=== PATIENT | male | born 1965 | race Two or more races ===

== ENCOUNTER 2022-10-29 15:08 | Emergency (ER) | payer OTHER ==
[~2022-10-29] VITALS: Ht 182.9 cm; Wt 83.6 kg
[2022-10-29 15:11] VITALS: BP 145/88
[2022-10-29 15:27] LABS: COVID AG,FIA SOURCE NASOPHARYNGEAL
[2022-10-29] MEDS ORDERED: GuaiFENesin/D-METHORPHAN [SUGAR-FREE] 200-20MG/10 ML SYRUP UDCUP PO ONE (15:30)
[2022-10-29] MEDS ORDERED: ACETAMINOPHEN 500 MG TABLET PO ONE (15:30)
[2022-10-29] MEDS ORDERED: IBUPROFEN 600 MG TABLET PO ONE (15:30)
[2022-10-29 15:33] LABS: INFLUENZA TYPE A NEGATIVE FOR TYPE A (NEGATIVE); INFLUENZA TYPE B NEGATIVE FOR TYPE B (NEGATIVE)
[2022-10-29] MEDS ORDERED: GUAIFDM PO (15:43)
[2022-10-29] MEDS ORDERED: ACET-66 PO (15:43)
[2022-10-29] MEDS ORDERED: IBUP-1554 PO (15:43)
== END 2022-10-29 15:51 | disposition home or self-care (01) ==
LOC: EMS 15:16
DX: R09.89 Other specified symptoms and signs involving the circulatory and respiratory systems (principal); R50.9 Fever, unspecified; R51.9 Headache, unspecified; Z20.822 Contact with and (suspected) exposure to COVID-19
CPT/HCPCS: 87804; 99284; Z7502; Z7610

== ENCOUNTER 2022-11-15 15:14 | Emergency (ER) | payer OTHER ==
[~2022-11-15] VITALS: Ht 182.9 cm; Wt 86.4 kg
[~2022-11-15 15:14] MED LIST: ACET-66 PO; GUAIFDM PO; IBUP-1554 PO
[2022-11-15] MEDS ORDERED: IBUPROFEN 600 MG TABLET PO ONE (17:15)
[2022-11-15 17:56] LABS: APPEARANCE,URINE CLEAR (CLEAR); BILIRUBIN,URINE NEGATIVE (NEGATIVE); GLUCOSE, URINE (UA) NEGATIVE (NEGATIVE); KETONES,URINE TRACE mg/dL (NEGATIVE); LEUKOCYTE ESTERASE ,URINE NEGATIVE (NEGATIVE); NITRATE,URINE NEGATIVE (NEGATIVE); OCCULT BLOOD,URINE NEGATIVE (NEGATIVE); PH,URINE 5.5 (5.0-8.0); PROTEIN,URINE 100-200,SEE CONFIRM mg/dL (NEGATIVE); UROBILINOGEN,URINE <=1.0 mg/dL (<=1.0)
[2022-11-15 18:06] VITALS: BP 120/72
[2022-11-15 18:07] LABS: SULFOSALICYLIC ACID,URINE 2+ (Negative)
[2022-11-15 19:37] LABS: BACTERIA,URINE None Seen /HPF (None Seen); RBC,URINE None Seen /HPF (0-2); SQUAMOUS EPITHELIAL CELL,UR None Seen /LPF (None Seen); WBC,URINE None Seen /HPF (0-5)
[2022-11-15] MEDS ORDERED: IBUP-1492 PO (19:55)
== END 2022-11-15 20:10 | disposition home or self-care (01) ==
LOC: EMS 15:18
DX: N43.3 Hydrocele, unspecified (principal)
CPT/HCPCS: 76870; 81001; 81002; 81003; 87491; 87591; 99284

== ENCOUNTER 2022-12-14 21:58 | Inpatient (IN) | payer OTHER ==
[~2022-12-14] VITALS: Ht 182.9 cm; Wt 86.0 kg
[~2022-12-14 21:58] MED LIST changes: -GUAIFDM PO; +IBUP-1492 PO; -IBUP-1554 PO
[2022-12-14] MEDS ORDERED: VANCOMYCIN 1GM/WATER(PEG/NADA) 200 ML IV ONE (23:15)
[2022-12-14] MEDS ORDERED: SODIUM CHLORIDE 0.9% 1,000 ML IV ONE (23:15)
[2022-12-14] MEDS ORDERED: HYDROCODONE/ACETAMINOPHEN 5-325 MG TABLET PO ONE (23:15)
[2022-12-14 23:34] LABS: BASOPHILS % (AUTO) 0.1 % (0.0-2.0); EOSINOPHILS % (AUTO) 0 % (1.0-6.0); HEMATOCRIT 45.9 % (41-53); HEMOGLOBIN 14.9 g/dL (13.5-17.5); LYMPHOCYTES # (AUTO) 0.7 K/uL (1.0-4.8); LYMPHOCYTES % (AUTO) 4.2 % (22.0-44.0); MEAN CORPUSCULAR HGB CONC 32.6 G/dL (31.0-37.0); MEAN CORPUSCULAR VOLUME 86 fL (80-100); MONOCYTES # (AUTO) 1.2 K/uL (0.1-1.0); MONOCYTES % (AUTO) 7.3 % (2.0-9.0); NEUTROPHILS # (AUTO) 14.5 K/uL (1.8-7.7); PLATELET COUNT (AUTO) 292 K/uL (150-450); RED BLOOD CELL COUNT(AUTO) 5.33 MIL/uL (4.50-5.90); RED CELL DISTRIBUTION WIDTH 14.5 % (11.5-14.5)
[2022-12-14 23:39] LABS: NEUTROPHILS % (AUTO) 88.4 % (40.0-70.0)
[2022-12-14 23:44] LABS: ANION GAP 8 mmol/L (8-16); CALCIUM, TOTAL 9.6 mg/dL (8.8-10.5); CARBON DIOXIDE 27 mmol/L (22-29); CHLORIDE 90 mmol/L (98-107); CREATININE 0.98 mg/dL (0.60-1.30); GLOMERULAR FILTR. RATE CALC > 60 mL/min (>60); GLUCOSE,RANDOM 119 mg/dL (70-110); POTASSIUM 3.5 mmol/L (3.5-5.1); SODIUM SERUM 125 mmol/L (136-145); UREA NITROGEN, BLOOD 22 mg/dL (7-18)
[2022-12-14] MEDS ORDERED: METOCLOPRAMIDE HCL 5 MG/ML 2 ML VIAL IVP ONE (23:45)
[2022-12-14 23:48] LABS: INR 1.1 (0.9-1.1); PROTHROMBIN TIME 11.7 SEC (9.4-11.6)
[2022-12-14 23:50] LABS: ALANINE AMINOTRANSFERASE 34 U/L (12-78); ALBUMIN 3.1 g/dL (3.4-5.0); ALKALINE PHOSPHATASE 92 U/L (46-116); ASPARTATE AMINOTRANSFERASE 45 U/L (15-37); BILIRUBIN,TOTAL 1.3 mg/dL (0.1-1.0); TOTAL PROTEIN, SERUM 8.4 g/dL (6.4-8.2)
[2022-12-14 23:52] LABS: LACTIC ACID 1.4 mmol/L (0.4-2.0)
[2022-12-15 00:07] LABS: CREATINE KINASE, TOTAL ONLY 239 U/L (39-308)
[2022-12-15 00:10] LABS: B-TYPE NATRIURETIC PEPTIDE 160 pg/mL (0-100)
[2022-12-15] MEDS ORDERED: RINGERS SOLUTION,LACTATED 1,000 ML IV SCH (01:45)
[2022-12-15] MEDS ORDERED: ONDANSETRON HCL 4 MG/2 ML VIAL IVP PRN (01:45)
[2022-12-15] MEDS ORDERED: CefTRIAXone 1 GM/DEXTROSE 50 ML IV SCH (02:00)
[2022-12-15 02:12] LABS: COVID AG,FIA SOURCE NASAL SWAB
[2022-12-15 02:40] LABS: APPEARANCE,URINE CLEAR (CLEAR); BILIRUBIN,URINE NEGATIVE (NEGATIVE); GLUCOSE, URINE (UA) NEGATIVE (NEGATIVE); LEUKOCYTE ESTERASE ,URINE NEGATIVE (NEGATIVE); NITRATE,URINE NEGATIVE (NEGATIVE); OCCULT BLOOD,URINE TRACE (NEGATIVE); PROTEIN,URINE TRACE mg/dL (NEGATIVE); SPECIFIC GRAVITIY, URINE 1.009 (1.003-1.030); UROBILINOGEN,URINE <=1.0 mg/dL (<=1.0)
[2022-12-15 02:56] LABS: BACTERIA,URINE None Seen /HPF (None Seen); RBC,URINE 0-2 /HPF (0-2); SQUAMOUS EPITHELIAL CELL,UR Few /LPF (None Seen); WBC,URINE 0-2 /HPF (0-5)
[2022-12-15] MEDS: ACETAMINOPHEN 325 MG TABLET PO PRN ×3 (03:57→20:43)
[2022-12-15 07:11] LABS: ANION GAP 10 mmol/L (8-16); CALCIUM, TOTAL 9.3 mg/dL (8.8-10.5); CARBON DIOXIDE 25 mmol/L (22-29); CHLORIDE 94 mmol/L (98-107); CREATININE 0.69 mg/dL (0.60-1.30); GLOMERULAR FILTR. RATE CALC > 60 mL/min (>60); GLUCOSE,RANDOM 102 mg/dL (70-110); POTASSIUM 3.5 mmol/L (3.5-5.1); SODIUM SERUM 129 mmol/L (136-145); UREA NITROGEN, BLOOD 18 mg/dL (7-18)
[2022-12-15] MEDS ORDERED: KETOROLAC TROMETHAMINE 30 MG/ML VIAL IVP PRN (07:30)
[2022-12-15] MEDS ORDERED: VANCOMYCIN HCL 1.25 GM in DEXTROSE 5%-WATER 250 ML IV SCH (08:00)
[2022-12-15] MEDS: VANCOMYCIN 1GM/WATER(PEG/NADA) 200 ML IV SCH ×2 (08:07→17:18)
[2022-12-15] MEDS: RINGERS SOLUTION,LACTATED 1,000 ML IV SCH ×2 (08:07→21:45)
[2022-12-15] MEDS: CLINDAMYCIN 900 MG/D5% WATER 50 ML IV SCH ×2 (15:21→22:38)
[2022-12-15] MEDS: CEFEPIME HCL 2 GM in DEXTROSE 5%-WATER 50 ML IV SCH (16:21)
[2022-12-15] MEDS: MORPHINE SULFATE 2 MG/ML SYRINGE IVP PRN ×2 (17:04→21:45)
[2022-12-15] MEDS ORDERED: SODIUM CHLORIDE 0.9% 500 ML IV ONE (22:25)
[2022-12-15 22:40] VITALS: BP 137/86
[2022-12-16] MEDS: CEFEPIME HCL 2 GM in DEXTROSE 5%-WATER 50 ML IV SCH ×4 (00:46→23:57)
[2022-12-16] MEDS: VANCOMYCIN 1GM/WATER(PEG/NADA) 200 ML IV SCH ×2 (01:16→11:01)
[2022-12-16] MEDS: ACETAMINOPHEN 325 MG TABLET PO PRN ×2 (03:40→20:41)
[2022-12-16] MEDS: MORPHINE SULFATE 2 MG/ML SYRINGE IVP PRN ×3 (03:40→20:42)
[2022-12-16 03:48] VITALS: BP 112/66
[2022-12-16] MEDS: CLINDAMYCIN 900 MG/D5% WATER 50 ML IV SCH ×3 (06:00→23:33)
[2022-12-16] MEDS ORDERED: INFLUENZA VIRUS VACCINE QVS 2022-23 (6MO+)/PF 60 MCG/0.5 ML SYRINGE IM. ONE (06:30)
[2022-12-16 07:01] VITALS: BP 112/66
[2022-12-16 07:18] LABS: BASOPHILS % (AUTO) 0.2 % (0.0-2.0); EOSINOPHILS % (AUTO) 0.4 % (1.0-6.0); HEMATOCRIT 42.6 % (41-53); LYMPHOCYTES # (AUTO) 1.1 K/uL (1.0-4.8); LYMPHOCYTES % (AUTO) 10.6 % (22.0-44.0); MEAN CORPUSCULAR HEMOGLOBIN 28.5 pg (26.0-34.0); MEAN CORPUSCULAR HGB CONC 32.9 G/dL (31.0-37.0); MEAN CORPUSCULAR VOLUME 86 fL (80-100); MONOCYTES # (AUTO) 1.2 K/uL (0.1-1.0); MONOCYTES % (AUTO) 11.5 % (2.0-9.0); NEUTROPHILS # (AUTO) 8.1 K/uL (1.8-7.7); NEUTROPHILS % (AUTO) 77.3 % (40.0-70.0); PLATELET COUNT (AUTO) 275 K/uL (150-450); RED BLOOD CELL COUNT(AUTO) 4.93 MIL/uL (4.50-5.90); RED CELL DISTRIBUTION WIDTH 14.6 % (11.5-14.5)
[2022-12-16 07:32] LABS: ALANINE AMINOTRANSFERASE 36 U/L (12-78); ALBUMIN 2.3 g/dL (3.4-5.0); ALKALINE PHOSPHATASE 86 U/L (46-116); ANION GAP 11 mmol/L (8-16); ASPARTATE AMINOTRANSFERASE 38 U/L (15-37); BILIRUBIN,TOTAL 0.6 mg/dL (0.1-1.0); CALCIUM, TOTAL 8.9 mg/dL (8.8-10.5); CARBON DIOXIDE 24 mmol/L (22-29); CHLORIDE 94 mmol/L (98-107); CREATININE 0.62 mg/dL (0.60-1.30); GLOMERULAR FILTR. RATE CALC > 60 mL/min (>60); GLUCOSE,RANDOM 105 mg/dL (70-110); POTASSIUM 3.3 mmol/L (3.5-5.1); SODIUM SERUM 129 mmol/L (136-145); TOTAL PROTEIN, SERUM 7.3 g/dL (6.4-8.2); UREA NITROGEN, BLOOD 10 mg/dL (7-18); VANCOMYCIN,RANDOM 10.4 mcg/mL (25.0-50.0)
[2022-12-16 07:45] LABS: C-REACTIVE PROTEIN QUANT 23.85 mg/dL (0.00-0.30)
[2022-12-16] MEDS ORDERED: POTASSIUM CHL 10 MEQ/WATER 50 ML IV PRN (10:00)
[2022-12-16] MEDS ORDERED: POTASSIUM CHLORIDE 20 MEQ ER TABLET PO PRN (10:00)
[2022-12-16] MEDS: RINGERS SOLUTION,LACTATED 1,000 ML IV SCH (10:40)
[2022-12-16 10:44] VITALS: BP 128/87
[2022-12-16] MEDS: VORICONAZOLE 200 MG TABLET PO SCH ×2 (15:56→20:41)
[2022-12-16] MEDS: VANCOMYCIN HCL 1.25 GM in DEXTROSE 5%-WATER 250 ML IV SCH (17:07)
[2022-12-16 17:22] VITALS: BP 119/73
[2022-12-16] MEDS ORDERED: MAGNESIUM SULFATE 2 GM/WATER 50 ML IV ONE (19:00)
[2022-12-16 20:21] VITALS: BP 115/61
[2022-12-17] MEDS: VANCOMYCIN HCL 1.25 GM in DEXTROSE 5%-WATER 250 ML IV SCH ×4 (01:12→23:51)
[2022-12-17 04:34] VITALS: BP 109/63
[2022-12-17] MEDS: CLINDAMYCIN 900 MG/D5% WATER 50 ML IV SCH ×3 (05:42→22:46)
[2022-12-17 07:37] LABS: ANION GAP 7 mmol/L (8-16); C-REACTIVE PROTEIN QUANT 12.78 mg/dL (0.00-0.30); CALCIUM, TOTAL 9.1 mg/dL (8.8-10.5); CARBON DIOXIDE 26 mmol/L (22-29); CHLORIDE 97 mmol/L (98-107); CREATININE 0.61 mg/dL (0.60-1.30); GLOMERULAR FILTR. RATE CALC > 60 mL/min (>60); GLUCOSE,RANDOM 102 mg/dL (70-110); SODIUM SERUM 130 mmol/L (136-145); UREA NITROGEN, BLOOD 12 mg/dL (7-18)
[2022-12-17] MEDS: VORICONAZOLE 200 MG TABLET PO SCH ×2 (08:00→20:10)
[2022-12-17] MEDS: CEFEPIME HCL 2 GM in DEXTROSE 5%-WATER 50 ML IV SCH (08:00)
[2022-12-17 08:50] VITALS: BP 133/87
[2022-12-17] MEDS ORDERED: *CLINICAL-MEROPENEM DOSING CLINICAL ONE (11:30)
[2022-12-17] MEDS: MEROPENEM 1 GM in SODIUM CHLORIDE 0.9% 100 ML IV SCH ×2 (12:36→20:10)
[2022-12-17] MEDS ORDERED: IOHEXOL 350 MG/ML 100 ML VIAL ONE (14:17)
[2022-12-17] MEDS ORDERED: SODIUM CHLORIDE 0.9% 100 ML ONE (14:17)
[2022-12-17] MEDS: MORPHINE SULFATE 2 MG/ML SYRINGE IVP PRN ×2 (14:20→20:11)
[2022-12-17 15:25] VITALS: BP 108/71
[2022-12-17 20:10] VITALS: BP 125/78
[2022-12-17] MEDS ORDERED: MORPHINE SULFATE 2 MG/ML SYRINGE IVP ONE (22:45)
[2022-12-18 04:20] VITALS: BP 123/78
[2022-12-18] MEDS: MORPHINE SULFATE 2 MG/ML SYRINGE IVP PRN ×2 (04:23→20:34)
[2022-12-18] MEDS: MEROPENEM 1 GM in SODIUM CHLORIDE 0.9% 100 ML IV SCH ×3 (04:23→20:22)
[2022-12-18] MEDS: CLINDAMYCIN 900 MG/D5% WATER 50 ML IV SCH ×3 (06:05→23:09)
[2022-12-18] MEDS: VANCOMYCIN HCL 1.25 GM in DEXTROSE 5%-WATER 250 ML IV SCH ×2 (08:18→17:05)
[2022-12-18] MEDS: VORICONAZOLE 200 MG TABLET PO SCH ×2 (08:18→20:23)
[2022-12-18 08:19] LABS: ANION GAP 7 mmol/L (8-16); CALCIUM, TOTAL 9.2 mg/dL (8.8-10.5); CARBON DIOXIDE 26 mmol/L (22-29); CHLORIDE 99 mmol/L (98-107); CREATININE 0.66 mg/dL (0.60-1.30); GLOMERULAR FILTR. RATE CALC > 60 mL/min (>60); GLUCOSE,RANDOM 104 mg/dL (70-110); POTASSIUM 3.8 mmol/L (3.5-5.1); SODIUM SERUM 132 mmol/L (136-145); UREA NITROGEN, BLOOD 10 mg/dL (7-18)
[2022-12-18 08:38] VITALS: BP 128/76
[2022-12-18 15:35] VITALS: BP 135/84
[2022-12-18] MEDS ORDERED: SODIUM CHLORIDE 0.9% 500 ML IV ONE (20:19)
[2022-12-18 20:22] VITALS: BP 128/84
[2022-12-19] MEDS: VANCOMYCIN HCL 1.25 GM in DEXTROSE 5%-WATER 250 ML IV SCH ×3 (00:06→17:14)
[2022-12-19] MEDS: MEROPENEM 1 GM in SODIUM CHLORIDE 0.9% 100 ML IV SCH ×3 (04:27→20:27)
[2022-12-19] MEDS: MORPHINE SULFATE 2 MG/ML SYRINGE IVP PRN ×3 (04:27→22:59)
[2022-12-19 05:15] VITALS: BP 124/79
[2022-12-19] MEDS: CLINDAMYCIN 900 MG/D5% WATER 50 ML IV SCH ×3 (06:38→22:55)
[2022-12-19 07:39] VITALS: BP 128/80
[2022-12-19 08:37] LABS: ANION GAP 7 mmol/L (8-16); C-REACTIVE PROTEIN QUANT 4.53 mg/dL (0.00-0.30); CALCIUM, TOTAL 9.8 mg/dL (8.8-10.5); CARBON DIOXIDE 27 mmol/L (22-29); CHLORIDE 99 mmol/L (98-107); GLOMERULAR FILTR. RATE CALC > 60 mL/min (>60); GLUCOSE,RANDOM 104 mg/dL (70-110); POTASSIUM 4.6 mmol/L (3.5-5.1); SODIUM SERUM 133 mmol/L (136-145); UREA NITROGEN, BLOOD 12 mg/dL (7-18)
[2022-12-19] MEDS: VORICONAZOLE 200 MG TABLET PO SCH ×2 (08:39→20:29)
[2022-12-19 15:03] VITALS: BP 122/76
[2022-12-19 20:10] VITALS: BP 138/87
[2022-12-20] MEDS: VANCOMYCIN HCL 1.25 GM in DEXTROSE 5%-WATER 250 ML IV SCH ×2 (00:12→08:16)
[2022-12-20] MEDS: MEROPENEM 1 GM in SODIUM CHLORIDE 0.9% 100 ML IV SCH ×2 (03:32→12:03)
[2022-12-20 04:45] VITALS: BP 131/78
[2022-12-20] MEDS: CLINDAMYCIN 900 MG/D5% WATER 50 ML IV SCH ×2 (06:16→15:37)
[2022-12-20 08:01] LABS: ANION GAP 9 mmol/L (8-16); CALCIUM, TOTAL 9.9 mg/dL (8.8-10.5); CARBON DIOXIDE 24 mmol/L (22-29); CHLORIDE 99 mmol/L (98-107); GLOMERULAR FILTR. RATE CALC > 60 mL/min (>60); GLUCOSE,RANDOM 117 mg/dL (70-110); POTASSIUM 4.5 mmol/L (3.5-5.1); SODIUM SERUM 132 mmol/L (136-145); UREA NITROGEN, BLOOD 14 mg/dL (7-18)
[2022-12-20] MEDS: VORICONAZOLE 200 MG TABLET PO SCH (08:16)
[2022-12-20 10:32] VITALS: BP 144/87
[2022-12-20] MEDS ORDERED: SULF-261 PO (12:31)
[2022-12-20] MEDS ORDERED: AMOX1TAB16 PO (12:31)
[2022-12-20] MEDS ORDERED: LEVO750T68 PO (12:31)
[2022-12-20 17:12] VITALS: BP 132/83
== END 2022-12-20 18:30 | disposition home or self-care (01) | DRG 720 ==
LOC: EMS 22:05 → AHU 12-15 07:33 → 6S 12-15 18:18
PROVIDERS: ADMIT Internal Medicine; ATTEND Internal Medicine
DX: A41.9 Sepsis, unspecified organism (principal); E87.1 Hypo-osmolality and hyponatremia; F10.10 Alcohol abuse, uncomplicated; L03.811 Cellulitis of head [any part, except face]; Z20.822 Contact with and (suspected) exposure to COVID-19; I10 Essential (primary) hypertension; L03.213 Periorbital cellulitis; N43.3 Hydrocele, unspecified; Z79.899 Other long term (current) drug therapy; R74.8 Abnormal levels of other serum enzymes
CPT/HCPCS: 70450; 70481; 71045; 80048; 80053; 80202; 81001; 82550; 83605; 83735; 83880; 84145; 84484; 85025; 85610; 85730; 86140; 87040; 93005; 99285; G0378; J0692; J0696; J2185; J2270; J2405; J2765; J3370; J3475; J3490; J7030; J7040; J7050; J7060; J7120; Q9967; 36415-L1; 36415-TC

== ENCOUNTER 2022-12-27 17:36 | Emergency (ER) | payer OTHER ==
[~2022-12-27] VITALS: Ht 182.9 cm; Wt 86.4 kg
[~2022-12-27 17:36] MED LIST changes: +AMOX1TAB16 PO; +LEVO750T68 PO; +SULF-261 PO
[2022-12-27 17:37] VITALS: BP 136/62
== END 2022-12-27 19:30 | disposition left against medical advice (07) ==
LOC: EMS 17:36
DX: R42 Dizziness and giddiness (principal); R51.9 Headache, unspecified; Z53.21 Procedure and treatment not carried out due to patient leaving prior to being seen by health care provider
CPT/HCPCS: 99281; Z7502

== ENCOUNTER 2022-12-28 23:42 | Emergency (ER) | payer OTHER ==
[~2022-12-28] VITALS: Ht 182.9 cm; Wt 86.0 kg
[2022-12-28 23:54] VITALS: BP 155/85
[2022-12-30] MEDS ORDERED: BUSP5TAB20 PO (02:12)
[2022-12-30] MEDS ORDERED: QUET25TA PO (02:12)
== END 2022-12-29 01:40 | disposition left against medical advice (07) ==
LOC: EMS 23:43
DX: R51.9 Headache, unspecified (principal); R42 Dizziness and giddiness; Z53.21 Procedure and treatment not carried out due to patient leaving prior to being seen by health care provider
CPT/HCPCS: 93005; 99281; Z7502

== ENCOUNTER 2022-12-29 20:31 | Emergency (ER) | payer OTHER ==
[~2022-12-29] VITALS: Ht 182.9 cm; Wt 84.1 kg
[2022-12-29] MEDS ORDERED: ONDANSETRON HCL 4 MG TABLET PO ONE (22:30)
[2022-12-29] MEDS ORDERED: ACETAMINOPHEN 325 MG TABLET PO ONE (22:30)
[2022-12-29 23:01] LABS: BASOPHILS % (AUTO) 0.4 % (0.0-2.0); EOSINOPHILS % (AUTO) 2.2 % (1.0-6.0); HEMATOCRIT 40.3 % (41-53); HEMOGLOBIN 13.1 g/dL (13.5-17.5); LYMPHOCYTES # (AUTO) 1.5 K/uL (1.0-4.8); LYMPHOCYTES % (AUTO) 29.4 % (22.0-44.0); MEAN CORPUSCULAR HEMOGLOBIN 28.1 pg (26.0-34.0); MEAN CORPUSCULAR HGB CONC 32.5 G/dL (31.0-37.0); MEAN CORPUSCULAR VOLUME 87 fL (80-100); MONOCYTES # (AUTO) 0.4 K/uL (0.1-1.0); MONOCYTES % (AUTO) 8.3 % (2.0-9.0); NEUTROPHILS # (AUTO) 3.1 K/uL (1.8-7.7); NEUTROPHILS % (AUTO) 59.7 % (40.0-70.0); PLATELET COUNT (AUTO) 358 K/uL (150-450); RED BLOOD CELL COUNT(AUTO) 4.66 MIL/uL (4.50-5.90); RED CELL DISTRIBUTION WIDTH 14.8 % (11.5-14.5)
[2022-12-29 23:09] LABS: ANION GAP 9 mmol/L (8-16); CALCIUM, TOTAL 9.3 mg/dL (8.8-10.5); CARBON DIOXIDE 25 mmol/L (22-29); CHLORIDE 104 mmol/L (98-107); CREATININE 0.73 mg/dL (0.60-1.30); GLOMERULAR FILTR. RATE CALC > 60 mL/min (>60); GLUCOSE,RANDOM 109 mg/dL (70-110); POTASSIUM 3.6 mmol/L (3.5-5.1); SODIUM SERUM 138 mmol/L (136-145); UREA NITROGEN, BLOOD 19 mg/dL (7-18)
[2022-12-30 00:57] VITALS: BP 132/89
[2022-12-30] MEDS ORDERED: BUSP5TAB20 PO (02:12)
[2022-12-30] MEDS ORDERED: QUET25TA PO (02:12)
== END 2022-12-30 02:50 | disposition home or self-care (01) ==
LOC: EMS 20:34
DX: R51.9 Headache, unspecified (principal); I10 Essential (primary) hypertension; F10.90 Alcohol use, unspecified, uncomplicated; Z90.89 Acquired absence of other organs; Z98.890 Other specified postprocedural states
CPT/HCPCS: 99283; 80048; 85025; 36415; Q0162

== ENCOUNTER 2023-06-14 20:34 | Emergency (ER) | payer OTHER ==
[~2023-06-14] VITALS: Ht 182.9 cm; Wt 93.0 kg
[~2023-06-14 20:34] MED LIST changes: -AMOX1TAB16 PO; +BUSP5TAB20 PO; +QUET25TA PO; -SULF-261 PO
[2023-06-14 20:45] VITALS: BP 141/98; PULSE 99; RESP 18; TEMP 99.8
[2023-06-14 23:17] LABS: BASOPHILS % (AUTO) 0.6 % (0.0-2.0); EOSINOPHILS % (AUTO) 3.5 % (1.0-6.0); HEMOGLOBIN 15.5 g/dL (13.5-17.5); LYMPHOCYTES # (AUTO) 2.3 K/uL (1.0-4.8); LYMPHOCYTES % (AUTO) 31.3 % (22.0-44.0); MEAN CORPUSCULAR HGB CONC 32.9 G/dL (31.0-37.0); MEAN CORPUSCULAR VOLUME 88 fL (80-100); MONOCYTES # (AUTO) 0.5 K/uL (0.1-1.0); MONOCYTES % (AUTO) 7.4 % (2.0-9.0); NEUTROPHILS # (AUTO) 4.2 K/uL (1.8-7.7); NEUTROPHILS % (AUTO) 57.2 % (40.0-70.0); PLATELET COUNT (AUTO) 347 K/uL (150-450); RED BLOOD CELL COUNT(AUTO) 5.33 MIL/uL (4.50-5.90); RED CELL DISTRIBUTION WIDTH 14.4 % (11.5-14.5)
[2023-06-14 23:26] LABS: ANION GAP 12 mmol/L (8-16); CALCIUM, TOTAL 8.7 mg/dL (8.8-10.5); CARBON DIOXIDE 26 mmol/L (22-29); CHLORIDE 102 mmol/L (98-107); CREATININE 0.64 mg/dL (0.60-1.30); GLOMERULAR FILTR. RATE CALC > 60 mL/min (>60); GLUCOSE,RANDOM 106 mg/dL (70-110); POTASSIUM 3.4 mmol/L (3.5-5.1); SODIUM SERUM 140 mmol/L (136-145)
[2023-06-14 23:32] LABS: ALANINE AMINOTRANSFERASE 74 U/L (12-78); ALBUMIN 3.2 g/dL (3.4-5.0); ALKALINE PHOSPHATASE 109 U/L (46-116); ASPARTATE AMINOTRANSFERASE 78 U/L (15-37); BILIRUBIN,TOTAL 0.6 mg/dL (0.1-1.0); TOTAL PROTEIN, SERUM 7.1 g/dL (6.4-8.2)
== END 2023-06-15 01:14 | disposition left against medical advice (07) ==
LOC: EMS 20:35
DX: F10.129 Alcohol abuse with intoxication, unspecified (principal); I10 Essential (primary) hypertension; Y90.9 Presence of alcohol in blood, level not specified
CPT/HCPCS: 99283; 80053; 85025; 36415; G0480

== ENCOUNTER 2023-11-15 10:28 | Emergency (ER) | payer OTHER ==
[~2023-11-15] VITALS: Ht 182.9 cm; Wt 95.5 kg
[2023-11-15 10:30] VITALS: TEMP 98.5
[2023-11-15] MEDS: SULFAMETHOX/TRIMETH DS 800-160 MG/TABLET PO ONE (13:16)
[2023-11-15] MEDS: CEPHALEXIN MONOHYDRATE 500 MG CAPSULE PO ONE (13:16)
[2023-11-15] MEDS: LIDOCAINE 1% 10 ML VIAL ID ONE (13:17)
[2023-11-15] MEDS ORDERED: IBUP-1506 PO (13:55)
[2023-11-15] MEDS ORDERED: CEPH-558 PO (13:55)
[2023-11-15] MEDS: PERTUSS(ACELL),DIPH,TET VAC/PF 0.5 ML SYRINGE IM. ONE (14:29)
[2023-11-15 14:45] VITALS: BP 147/92; PULSE 78; RESP 18
== END 2023-11-15 16:55 | disposition home or self-care (01) ==
LOC: EMS 10:28
DX: L02.611 Cutaneous abscess of right foot (principal); I10 Essential (primary) hypertension; F10.90 Alcohol use, unspecified, uncomplicated; Z98.890 Other specified postprocedural states; Y90.9 Presence of alcohol in blood, level not specified
CPT/HCPCS: 99283; 10060; 90715; 90471; J3490

== ENCOUNTER 2023-12-10 22:12 | Emergency (ER) | payer OTHER ==
[~2023-12-10] VITALS: Ht 182.9 cm; Wt 90.9 kg
[~2023-12-10 22:12] MED LIST changes: -ACET-66 PO; -BUSP5TAB20 PO; +CEPH-558 PO; -IBUP-1492 PO; +IBUP-1506 PO; -LEVO750T68 PO; -QUET25TA PO
[2023-12-10 22:16] VITALS: BP 161/97; PULSE 108; RESP 18; TEMP 98.3
[2023-12-11] MEDS: KETOROLAC TROMETHAMINE 60 MG/2 ML VIAL IM ONE (00:48)
[2023-12-11] MEDS ORDERED: IBUP-1492 PO (02:19)
== END 2023-12-11 02:55 | disposition home or self-care (01) ==
LOC: EMS 22:14
DX: S62.323A Displaced fracture of shaft of third metacarpal bone, left hand, initial encounter for closed fracture (principal); S09.90XA Unspecified injury of head, initial encounter; F10.90 Alcohol use, unspecified, uncomplicated; I10 Essential (primary) hypertension; Z98.890 Other specified postprocedural states; Y08.89XA Assault by other specified means, initial encounter; Y93.89 Activity, other specified; Y92.89 Other specified places as the place of occurrence of the external cause; Y99.8 Other external cause status
CPT/HCPCS: 99285; 70450; 73130; 96372; J1885

== ENCOUNTER 2024-03-02 14:25 | Emergency (ER) | payer OTHER ==
[~2024-03-02] VITALS: Ht 183.5 cm; Wt 95.5 kg
[~2024-03-02 14:25] MED LIST changes: +IBUP-1492 PO
[2024-03-02 14:29] VITALS: TEMP 97.8
[2024-03-02 15:24] LABS: COVID AG,FIA SOURCE NASAL SWAB
[2024-03-02 15:35] LABS: APPEARANCE,URINE CLEAR (CLEAR); BILIRUBIN,URINE NEGATIVE (NEGATIVE); COLOR,URINE YELLOW (YELLOW); GLUCOSE, URINE (UA) NEGATIVE (NEGATIVE); KETONES,URINE NEGATIVE (NEGATIVE); LEUKOCYTE ESTERASE ,URINE NEGATIVE (NEGATIVE); NITRATE,URINE NEGATIVE (NEGATIVE); OCCULT BLOOD,URINE NEGATIVE (NEGATIVE); PROTEIN,URINE 300-600,SEE CONFIRM mg/dL (NEGATIVE); SPECIFIC GRAVITIY, URINE 1.025 (1.003-1.030); UROBILINOGEN,URINE <=1.0 mg/dL (<=1.0)
[2024-03-02 15:56] LABS: BASOPHILS % (AUTO) 0.5 % (0.0-2.0); EOSINOPHILS % (AUTO) 4.6 % (1.0-6.0); HEMATOCRIT 52.3 % (41-53); HEMOGLOBIN 17.5 g/dL (13.5-17.5); LYMPHOCYTES % (AUTO) 29.6 % (22.0-44.0); MEAN CORPUSCULAR HEMOGLOBIN 30.1 pg (26.0-34.0); MEAN CORPUSCULAR HGB CONC 33.4 G/dL (31.0-37.0); MEAN CORPUSCULAR VOLUME 90 fL (80-100); MONOCYTES # (AUTO) 0.8 K/uL (0.1-1.0); MONOCYTES % (AUTO) 12.4 % (2.0-9.0); NEUTROPHILS # (AUTO) 3.6 K/uL (1.8-7.7); NEUTROPHILS % (AUTO) 52.9 % (40.0-70.0); PLATELET COUNT (AUTO) 320 K/uL (150-450); RED CELL DISTRIBUTION WIDTH 14.6 % (11.5-14.5); WHITE BLOOD COUNT (AUTO) 6.8 K/uL (4.5-11.0)
[2024-03-02 16:08] LABS: ANION GAP 11 mmol/L (8-16); CALCIUM, TOTAL 9.4 mg/dL (8.8-10.5); CARBON DIOXIDE 26 mmol/L (22-29); CHLORIDE 102 mmol/L (98-107); GLOMERULAR FILTR. RATE CALC > 60 mL/min (>60); GLUCOSE,RANDOM 101 mg/dL (70-110); POTASSIUM 3.6 mmol/L (3.5-5.1); SODIUM SERUM 139 mmol/L (136-145); UREA NITROGEN, BLOOD 11 mg/dL (7-18)
[2024-03-02 16:08] LABS: SULFOSALICYLIC ACID,URINE 3+ (Negative)
[2024-03-02 16:09] LABS: BACTERIA,URINE None Seen /HPF (None Seen); RBC,URINE 0-2 /HPF (0-2); WBC,URINE 0-2 /HPF (0-5)
[2024-03-02 16:10] LABS: SARS-COV2 (COVID) ANTIGEN,FIA Negative (Negative)
[2024-03-02 16:14] LABS: ALANINE AMINOTRANSFERASE 62 U/L (12-78); ALKALINE PHOSPHATASE 98 U/L (46-116); ASPARTATE AMINOTRANSFERASE 65 U/L (15-37); BILIRUBIN,TOTAL 0.6 mg/dL (0.1-1.0); TOTAL PROTEIN, SERUM 8.9 g/dL (6.4-8.2)
[2024-03-02 16:15] LABS: TROPONIN I-HIGH SENSITIVITY 17 ng/L (<76)
[2024-03-02 16:15] LABS: INFLUENZA TYPE A NEGATIVE FOR TYPE A (NEGATIVE); INFLUENZA TYPE B NEGATIVE FOR TYPE B (NEGATIVE)
[2024-03-02] MEDS ORDERED: GUAIFDM PO (16:27)
[2024-03-02] MEDS ORDERED: ACET-66 PO (16:27)
[2024-03-02 16:37] VITALS: BP 141/99; PULSE 96; RESP 14
== END 2024-03-02 16:51 | disposition home or self-care (01) ==
LOC: EMS 14:26
DX: J06.9 Acute upper respiratory infection, unspecified (principal); F10.20 Alcohol dependence, uncomplicated; I10 Essential (primary) hypertension; F14.90 Cocaine use, unspecified, uncomplicated; F15.90 Other stimulant use, unspecified, uncomplicated; Z98.890 Other specified postprocedural states; Z20.822 Contact with and (suspected) exposure to COVID-19
CPT/HCPCS: 71045; 80053; 81001; 81002; 84484; 85025; 87804; 99284; 36415-L1; 36415-TC